=== PATIENT | male | born 1970 | race Two or more races ===

== ENCOUNTER → 2018-09-14 | Day surgery (SDC) | payer OTHER ==
[~2018-09-14] VITALS: Ht 165.1 cm; Wt 72.6 kg
[~2018-09-14] MED LIST: CITA-77 PO; LIDOCAINE VISCOUS 2% 15ML UD ONE; MIDAZOLAM HCL 5 MG/ML-1ML VIAL ONE; SODIUM CHLORIDE LOCK 10 ML ONE; SULF500T37 PO; diphenhdrAMINE HCL 50 MG/1 ML VL ONE; fentaNYL CITRATE 100 MCG/2 ML VL ONE
[2018-09-14 07:07] LABS: Basophils # (auto) 0.1 uL; Basophils % (auto) 0.7 % (0.0-2.0); Eosinophils # (auto) 0.3 uL; Eosinophils % (auto) 4.4 % (0.0-7.0); Hematocrit 39.1 % (41.0-53.0); Hemoglobin 12.5 g/dL (13.5-17.5); Lymphocytes # (auto) 1.4 uL; Lymphocytes % (auto) 20.5 % (10.0-50.0); Mean Corpuscular Volume 90.5 fL (80.0-100.0); Monocytes # (auto) 0.8 uL; Monocytes % (auto) 11.8 % (0.0-12.0); Neutrophils # (auto) 4.3 uL; Neutrophils % (auto) 62.6 % (37.0-80.0); Nucleated Red Blood Cells % 0.1 %; Platelet Count (auto) 320 10^3/uL (140-450); Red Blood Cells 4.32 10^6/uL (4.5-5.90); Red Cell Distribution Width 16.4 % (11.8-14.3); White Blood Cell 6.9 10^3/uL (4.4-10.8)
[2018-09-14 07:20] LABS: INR 0.97 (0.9-1.15); Partial Thromboplastin Time 28.9 sec (23.64-32.05)
[2018-09-14] MEDS: fentaNYL CITRATE 100 MCG/2 ML VL ONE ×2 (10:56→11:00)
[2018-09-14] MEDS: MIDAZOLAM HCL 5 MG/ML-1ML VIAL ONE ×3 (10:56→11:07)
[2018-09-14 11:54] VITALS: BP 103/64
== END | disposition home or self-care (01) ==
LOC: GI 06:00
PROVIDERS: ATTEND Internal Medicine Gastroenterology
DX: K29.50 Unspecified chronic gastritis without bleeding (principal); K29.90 Gastroduodenitis, unspecified, without bleeding; K62.1 Rectal polyp; K51.911 Ulcerative colitis, unspecified with rectal bleeding; K64.8 Other hemorrhoids; F17.210 Nicotine dependence, cigarettes, uncomplicated; F41.9 Anxiety disorder, unspecified; Z86.19 Personal history of other infectious and parasitic diseases; Z79.899 Other long term (current) drug therapy; Z98.890 Other specified postprocedural states; Z72.89 Other problems related to lifestyle
CPT/HCPCS: 36415; 43239; 45380; 45385; 85025; 85610; 85730; 88305; 88342; J1200; J2250; J3010; J7030; 99152; 99153

== ENCOUNTER 2019-02-11 09:57 | Inpatient (IN) | payer OTHER ==
[~2019-02-11] VITALS: Ht 165.1 cm; Wt 75.5 kg
[~2019-02-11 09:57] MED LIST changes: -LIDOCAINE VISCOUS 2% 15ML UD ONE; -MIDAZOLAM HCL 5 MG/ML-1ML VIAL ONE; -SODIUM CHLORIDE LOCK 10 ML ONE; -diphenhdrAMINE HCL 50 MG/1 ML VL ONE; -fentaNYL CITRATE 100 MCG/2 ML VL ONE
[2019-02-11] MEDS ORDERED: ONDANSETRON HCL 4 MG/2 ML VIAL IV ONE ×2 (10:30→12:30)
[2019-02-11] MEDS ORDERED: KETOROLAC TROMETH 30 MG/ML 1ML VIAL IV ONE ×2 (10:30→10:45)
[2019-02-11] MEDS ORDERED: SODIUM CHLORIDE 0.9% 1,000 ML IV ONE ×2 (10:39)
[2019-02-11 10:43] LABS: Eosinophils # (auto) 0 uL; Eosinophils % (auto) 0.1 % (0.0-7.0); Hemoglobin 9.9 g/dL (13.5-17.5); Lymphocytes # (auto) 0.5 uL; Monocytes # (auto) 0.6 uL
[2019-02-11 10:47] LABS: Basophils # (auto) 0.1 uL; Basophils % (auto) 0.5 % (0.0-2.0); Hematocrit 32.3 % (41.0-53.0); Lymphocytes % (auto) 4.4 % (10.0-50.0); Mean Corpuscular Hemoglobin 21.8 pg (28.0-32.0); Mean Corpuscular Hgb Conc. 30.5 g/dL (32.0-36.0); Mean Corpuscular Volume 71.6 fL (80.0-100.0); Monocytes % (auto) 5.2 % (0.0-12.0); Neutrophils # (auto) 10.5 uL; Neutrophils % (auto) 89.8 % (37.0-80.0); Platelet Count (auto) 332 10^3/uL (140-450); Red Blood Cells 4.51 10^6/uL (4.5-5.90); Red Cell Distribution Width 15.5 % (11.8-14.3); White Blood Cell 11.7 10^3/uL (4.4-10.8)
[2019-02-11 10:55] LABS: Calcium 8.6 mg/dL (8.5-10.1); Potassium 4.3 mmol/L (3.5-5.1); Total Protein 7.9 g/dL (6.4-8.2)
[2019-02-11 10:58] LABS: Bilirubin, Total 0.9 mg/dL (0.2-1.0)
[2019-02-11] MEDS ORDERED: MORPHINE SULFATE 4 MG/ML SYR/VIAL IV ONE (12:30)
[2019-02-11] MEDS ORDERED: TAMSULOSIN HYDROCHLORIDE 0.4 MG CAP PO ONE (13:00)
[2019-02-11] MEDS ORDERED: SULFASALAZINE 500 MG PO SCH (14:00)
[2019-02-11 14:41] VITALS: BP 112/64
[2019-02-11 15:46] LABS: Urine Bacteria NONE SEEN /hpf (None Seen); Urine Blood 2+ /uL (Negative); Urine Mucus FEW (None Seen); Urine Specific Gravity 1.028 (1.001-1.035); Urine WBC 3 /hpf (0 - 3)
[2019-02-11 16:28] VITALS: BP 109/59
--- NOTE | 2019-02-11 16:59 | NUR ---
1430 received from ED via gurney due to left flank pain, noted for positive renal stones. accompanied by [employer] guards. Situated in bed, oriented to unit and call light.
[2019-02-11] MEDS: D5W/SOD CHL 0.45% 1,000 ML IV SCH ×2 (17:13→20:10)
--- NOTE | 2019-02-11 19:30 | NUR ---
Opening Shift Note Assumed care of patient, awake and alert. No S/S of distress/SOB. The patient c/o 9/10 left flank pain and requested pain medication. Will treat with PRN morphine. Instructed on POC and to call for assist PRN, will continue to monitor for changes Q1hr and PRN.
[2019-02-11] MEDS: ONDANSETRON HCL 4 MG/2 ML VIAL IV PRN (19:48)
[2019-02-11] MEDS: MORPHINE SULFATE 4 MG/ML SYR/VIAL IV PRN (19:48)
[2019-02-11] MEDS: SULFASALAZINE 500 MG TAB PO SCH (21:42)
[2019-02-11] MEDS: CITALOPRAM HYDROBR 20 MG TAB PO SCH (21:43)
[2019-02-11] MEDS: SULFAMETHOX W/TRIMETH(800/160MG) DS TAB PO SCH (21:43)
[2019-02-11 22:00] VITALS: BP 93/60
[2019-02-12] MEDS: D5W/SOD CHL 0.45% 1,000 ML IV SCH ×4 (02:59→23:22)
[2019-02-12] MEDS: MORPHINE SULFATE 4 MG/ML SYR/VIAL IV PRN ×4 (02:59→18:30)
[2019-02-12] MEDS: ONDANSETRON HCL 4 MG/2 ML VIAL IV PRN ×4 (03:00→18:30)
[2019-02-12 05:46] VITALS: BP 111/70
[2019-02-12] MEDS: SULFASALAZINE 500 MG TAB PO SCH ×5 (06:53→21:51)
[2019-02-12 07:13] LABS: Calcium 7.6 mg/dL (8.5-10.1)
--- NOTE | 2019-02-12 08:53 | NUR ---
[employer] REPRESENTATIVE YESICA REQUESTED TO CALL UROLOGY DR ANDRADE FOR CONSULT.
[2019-02-12 09:00] VITALS: BP 112/60
[2019-02-12] MEDS: SULFAMETHOX W/TRIMETH(800/160MG) DS TAB PO SCH ×2 (09:55→21:51)
[2019-02-12] MEDS: TAMSULOSIN HYDROCHLORIDE 0.4 MG CAP PO SCH (09:56)
[2019-02-12 13:00] VITALS: BP 98/51
[2019-02-12 17:00] VITALS: BP 97/75
--- NOTE | 2019-02-12 19:35 | NUR ---
Opening Shift Note Assumed care of patient, awake and alert. No S/S of distress/SOB. The patient c/o left flank/abdominal pain but states that he is comfortable. Instructed on POC and to call for assist PRN, will continue to monitor for changes Q1hr and PRN.
[2019-02-12 21:40] VITALS: BP 94/53
[2019-02-12] MEDS: CITALOPRAM HYDROBR 20 MG TAB PO SCH (21:51)
[2019-02-13] MEDS: MORPHINE SULFATE 4 MG/ML SYR/VIAL IV PRN ×3 (01:49→15:30)
[2019-02-13] MEDS: ONDANSETRON HCL 4 MG/2 ML VIAL IV PRN ×3 (01:50→15:31)
[2019-02-13 04:55] VITALS: BP 98/58
[2019-02-13] MEDS: D5W/SOD CHL 0.45% 1,000 ML IV SCH ×3 (06:47→18:50)
[2019-02-13] MEDS: SULFASALAZINE 500 MG TAB PO SCH ×4 (06:48→18:59)
[2019-02-13 09:00] VITALS: BP 100/59
[2019-02-13] MEDS: TAMSULOSIN HYDROCHLORIDE 0.4 MG CAP PO SCH (10:00)
[2019-02-13] MEDS: SULFAMETHOX W/TRIMETH(800/160MG) DS TAB PO SCH ×2 (10:00→23:12)
[2019-02-13 13:00] VITALS: BP 113/79
--- NOTE | 2019-02-13 13:57 | NUR ---
SEEN BY JOSÉ LUIS DOMINGUEZ THIS MORNING, INFORMED PATIENT ON SCHEDULED PROCEDURE TOMORROW.
[2019-02-13 17:00] VITALS: BP 103/64
--- NOTE | 2019-02-13 19:30 | NUR ---
Opening Shift Note Assumed care of patient. Patient is awake and alert with guards at bedside. No S/S of distress/SOB or pain. Instructed on POC and to call for assist PRN, will continue to monitor for changes. Bed locked in lowest position and bed rails up x2. Call light within reach.
[2019-02-13 22:00] VITALS: BP 106/56
[2019-02-13] MEDS: CITALOPRAM HYDROBR 20 MG TAB PO SCH (23:12)
--- NOTE | 2019-02-14 | NUR ---
Patient aware of NPO status after midnight
[2019-02-14] MEDS: SULFASALAZINE 500 MG TAB PO SCH ×6 (01:00→22:41)
[2019-02-14] MEDS: D5W/SOD CHL 0.45% 1,000 ML IV SCH ×4 (01:01→18:20)
--- NOTE | 2019-02-14 05:18 | NUR ---
1100ml of urine output so far with evidence of renal calculi in strainer
[2019-02-14 05:24] VITALS: BP 98/60
[2019-02-14 07:38] LABS: INR 1.01 (0.9-1.15); Partial Thromboplastin Time 29.3 sec (23.64-32.05)
[2019-02-14 07:40] VITALS: BP 92/49
--- NOTE | 2019-02-14 08:40 | NUR ---
PATIENT TAKEN TO PRE-OP.
[2019-02-14] MEDS ORDERED: SUCCINYLCHOLINE CHLORIDE 20 MG/ML 10ML VIAL IV ONE (09:59)
[2019-02-14] MEDS ORDERED: LIDOCAINE 1% (LOCAL ANESTH.) PF 5ml SDV ONE (09:59)
[2019-02-14] MEDS ORDERED: MIDAZOLAM HCL 1MG/1ML-2 ML VIAL ONE (10:14)
[2019-02-14] MEDS ORDERED: PROPOFOL 10 MG/ML 20 ML IV ONE (10:15)
[2019-02-14] MEDS ORDERED: METOCLOPRAMIDE HCL 5MG/ml INJ 2ml VIAL ONE (10:15)
[2019-02-14] MEDS ORDERED: ROCURONIUM 10MG/ML 10ML VIAL IV ONE (10:16)
[2019-02-14] MEDS ORDERED: fentaNYL CITRATE 100 MCG/2 ML VL ONE (10:23)
[2019-02-14] MEDS ORDERED: ONDANSETRON HCL 4 MG/2 ML VIAL IV PRN (10:30)
[2019-02-14] MEDS ORDERED: HYDROmorphone HCL 2 MG/ML VL IV PRN ×2 (10:30)
[2019-02-14] MEDS ORDERED: NALOXONE HCL 0.4 MG/ML VIAL IV PRN (10:30)
[2019-02-14] MEDS ORDERED: ePHEDrine SULFATE 50 MG/ML AMP ONE (10:38)
[2019-02-14] MEDS ORDERED: GLYCOPYRROLATE 0.2 MG/ML 1ML VIAL ONE (11:23)
[2019-02-14] MEDS ORDERED: NEOSTIGMINE 1 MG/ML INJ (10mg/10ML VIAL) ONE (11:23)
--- NOTE | 2019-02-14 11:45 | NUR ---
Nutrition Assessment Notes please see attached link for complete assessment Est. Needs BW [id number] kcal (23-25 kcal/kgBW), 77-84 gms pro (1.0-1.1 gms/kgBW). Will continue to monitor pertinent labs and reassess nutrient need prn\ Addendum: 02/14/19 at [address] Amended: Links added.
--- NOTE | 2019-02-14 11:58 | NUR ---
RECEIVED REPORT FROM POST-OP RN
[2019-02-14 12:00] VITALS: BP 105/57
[2019-02-14] MEDS: TAMSULOSIN HYDROCHLORIDE 0.4 MG CAP PO SCH (12:46)
[2019-02-14] MEDS: SULFAMETHOX W/TRIMETH(800/160MG) DS TAB PO SCH ×2 (12:46→22:41)
[2019-02-14 16:40] VITALS: BP 93/43
--- NOTE | 2019-02-14 18:50 | NUR ---
URINE BLADDER SCAN. INITIATED URINE BLADDER SCAN. BLADDER SCAN SHOWS 190-200 ML OF URINE IN BLADDER.
--- NOTE | 2019-02-14 18:50 | NUR ---
IV removal LEFT AC IV DC'd with clean sterile technique, catheter fully intact. Pressure dressing applied to site. Patient tolerated well.
--- NOTE | 2019-02-14 19:00 | NUR ---
IV insertion IV access obtained, via clean sterile technique by inserting 22 gauge catheter at RIGHT FA after 2 attempt(s). IV secured properly. No trauma to site. Patient tolerated well.
[2019-02-14] MEDS: MORPHINE SULFATE 4 MG/ML SYR/VIAL IV PRN (19:13)
--- NOTE | 2019-02-14 19:30 | NUR ---
ENDORSED CARE TO NIGHT, RNFUNMI. RN AWARE OF BLADDER SCAN RESULTS AND LOW URINE OUTPUT. RN VERBALIZED UNDERSTANDING.
--- NOTE | 2019-02-14 19:30 | NUR ---
Opening Shift Note Assumed care of patient. Patient awake and alert with guards at bedside. No S/S of distress/SOB or pain. Instructed on POC and to call for assist PRN, will continue to monitor for changes. Bed locked in lowest position and bed rails up x2. Call light within reach.
[2019-02-14 22:00] VITALS: BP 117/70
[2019-02-14] MEDS: CITALOPRAM HYDROBR 20 MG TAB PO SCH (22:41)
[2019-02-15] MEDS: MORPHINE SULFATE 4 MG/ML SYR/VIAL IV PRN (00:09)
--- NOTE | 2019-02-15 04:00 | NUR ---
Patient requested next dose of Morphine for pain. B/P reading at 4am was 92/63. Educated patient on low B/P as well as safety and risks of given Morphine with low B/P. Morphine medication held.
[2019-02-15 05:00] VITALS: BP 94/59
[2019-02-15] MEDS: SULFASALAZINE 500 MG TAB PO SCH ×3 (06:06→15:10)
[2019-02-15] MEDS: D5W/SOD CHL 0.45% 1,000 ML IV SCH ×2 (06:06→10:50)
--- NOTE | 2019-02-15 07:32 | NUR ---
Opening Shift Note Assumed care of patient, asleep, arouses to name and alert. No S/S of distress/SOB. Patient denies having any pain at this time. Bed in lowest and locked position with side rails up x2 and call light in reach. Instructed on POC and to call for assist PRN, will continue to monitor for changes Q1hr and PRN.
[2019-02-15 08:54] VITALS: BP 103/52
[2019-02-15] MEDS: SULFAMETHOX W/TRIMETH(800/160MG) DS TAB PO SCH (10:47)
[2019-02-15] MEDS: TAMSULOSIN HYDROCHLORIDE 0.4 MG CAP PO SCH (10:47)
[2019-02-15 13:03] VITALS: BP 97/57
--- NOTE | 2019-02-15 13:12 | NUR ---
IV removal Patient refusing IV. Patient stated "Im leaving I want this out now". Patient educated on the importance and risks of having the IV until discharge, Patient verbalized understanding and continue to refuse IV. Right FA IV DC'd with clean sterile technique, catheter fully intact. Pressure dressing applied to site. Patient tolerated well.
[2019-02-15 14:32] VITALS: BP 97/57
--- NOTE | 2019-02-15 15:37 | NUR ---
Discharge instructions given as ordered. Encourage to follow up with PMD as instructed. All questions and concerns addressed. Patient verbalized understanding. Medication reconciliation form completed and copy given to patient. No Home medications held in Pharmacy. PT refused vaccines. IV removed with catheter intact, pressure dressing applied.
[2019-02-15 16:54] VITALS: BP 112/58
--- NOTE | 2019-02-15 17:22 | NUR ---
Patient taken to vehicle With all personal belongings. No distress noted at time of departure.
== END 2019-02-15 17:55 | DRG 694 ==
LOC: EDBD 09:57 → ER 10:01 → EEVIPCON 10:01 → OVERFLOW 10:02 → EAST 14:57
PROVIDERS: ADMIT Internal Medicine; ATTEND Internal Medicine
PROC: 0TF4XZZ Fragmentation in Left Kidney Pelvis, External Approach (ICD-10-PCS; 2019-02-14)
PROC: 0TF7XZZ Fragmentation in Left Ureter, External Approach (ICD-10-PCS; principal; 2019-02-14 10:01)
DX: N13.2 Hydronephrosis with renal and ureteral calculous obstruction (principal); F41.9 Anxiety disorder, unspecified; F17.210 Nicotine dependence, cigarettes, uncomplicated; F11.10 Opioid abuse, uncomplicated; K44.9 Diaphragmatic hernia without obstruction or gangrene; N28.1 Cyst of kidney, acquired; Z79.899 Other long term (current) drug therapy
CPT/HCPCS: 36415; 71045; 74018; 74176; 80048; 80053; 81001; 85025; 85610; 85730; 86850; 86900; 86901; 96361; 96374; 96375; G0378; J0330; J1885; J2250; J2405; J2704

== ENCOUNTER → 2019-02-20 | Outpatient (CLI) | payer OTHER ==
[2019-02-20 11:29] LABS: Basophils # (auto) 0.1 uL; Eosinophils # (auto) 0.3 uL; Eosinophils % (auto) 4.2 % (0.0-7.0); Hematocrit 32.2 % (41.0-53.0); Lymphocytes # (auto) 1.3 uL; Mean Corpuscular Volume 71.3 fL (80.0-100.0); Nucleated Red Blood Cells % 0.1 %
[2019-02-20 11:31] LABS: Basophils % (auto) 1.1 % (0.0-2.0); Lymphocytes % (auto) 18.8 % (10.0-50.0); Mean Corpuscular Hemoglobin 22.2 pg (28.0-32.0); Mean Corpuscular Hgb Conc. 31.1 g/dL (32.0-36.0); Monocytes # (auto) 0.8 uL; Neutrophils # (auto) 4.4 uL; Neutrophils % (auto) 63.9 % (37.0-80.0); Platelet Count (auto) 307 10^3/uL (140-450); Red Blood Cells 4.51 10^6/uL (4.5-5.90); Red Cell Distribution Width 15.9 % (11.8-14.3); White Blood Cell 6.8 10^3/uL (4.4-10.8)
[2019-02-20 11:52] LABS: Albumin 3.8 g/dL (3.4-5.0); Calcium 8.3 mg/dL (8.5-10.1); Potassium 3.9 mmol/L (3.5-5.1)
[2019-02-20 11:57] LABS: BUN/Creatinine Ratio 13.5; Bilirubin, Total 0.5 mg/dL (0.2-1.0); Total Protein 7.7 g/dL (6.4-8.2)
== END | disposition home or self-care (01) ==
LOC: LAB 11:12
PROVIDERS: ATTEND Internal Medicine Gastroenterology
DX: K51.911 Ulcerative colitis, unspecified with rectal bleeding (principal)
CPT/HCPCS: 36415; 80053; 85025